=== PATIENT | male | born 1940 | race Caucasian/White ===

== ENCOUNTER → 2021-09-21 12:36 | Outpatient (CLI) | payer MEDICARE, SELFPAY ==
--- NOTE | 2021-09-21 12:38 | DI.MRI.S_ITS ---
PROCEDURE: MR CERVICAL SPINE WO CON INDICATIONS: Cervical disc disorder with myelopathy TECHNIQUE: Noncontrast sagittal T1 spin echo and T2 fast spin echo, sagittal STIR, foraminal oblique sagittal T2 fast spin echo, and axial gradient echo or T2 fast spin echo through the cervical spine. COMPARISON: None. FINDINGS: Image quality: Excellent. Alignment and Curvature: There is grade 1 anterolisthesis seen at the C4-C5 and C5-C6 levels. Minimal retrolisthesis is seen at C6-C7. At the T2-T3 level, mild anterolisthesis is seen. Bone Marrow: Marrow demonstrates normal overall signal. Spinal Cord: Visualized spinal cord has normal size and signal. No cerebellar tonsillar herniation. Paraspinous Soft Tissues: No paravertebral masses. Prevertebral soft tissues are normal in thickness. Prominent soft tissue pannus and irregularity can be seen adjacent to the dens, as on series 4 image 12, with partial erosion of the dens. C2-C3: The disc height is well-preserved. Loss of disc signal is seen at this level. A mild degree of generalized disc osteophyte complex is seen. There is moderate right-sided and minimal left-sided facet hypertrophy. No significant central canal narrowing is seen. C3-C4: The disc height is well-preserved. Loss of disc signal is seen at this level. A mild degree of generalized disc osteophyte complex is seen. Moderate to prominent facet hypertrophy is seen. There is moderate to severe bilateral neural foraminal narrowing seen, left worse than right. Mild central canal narrowing is seen. C4-C5: The disc height is well-preserved. Loss of disc signal is seen at this level. Moderate generalized disc osteophyte complex is seen. Moderate to prominent facet hypertrophy is seen. Moderate to severe bilateral neural foraminal narrowing is seen. At least moderate central canal narrowing is seen, with associated mass effect upon the spinal cord C5-C6: Kuto-zw-shuwhsxw loss of disc height and disc signal can be seen. At least moderate disc bulge is seen. There is at least moderate right-sided and [id number]-sd-ablhwzvg left-sided facet hypertrophy seen. There is moderate to severe bilateral neural foraminal narrowing seen, left worse than right. Moderate central canal narrowing is seen. There is associated mass effect upon the ventral spinal cord. C6-C7: At least moderate loss of disc height and disc signal can be seen. At least moderate disc osteophyte complex is seen, which is eccentric to left. Uncovertebral joint hypertrophy is seen at this level. Macrometastasis set there is moderate to severe bilateral neural narrowing seen. At least moderate central canal narrowing is seen, with associated ventral cord flattening. C7-T1: The disc height is well-preserved. Loss of disc signal is seen at this level. Moderate generalized disc osteophyte complex is seen. Mild facet joint hypertrophy is seen. Moderate to severe bilateral neural foraminal narrowing can be seen at this level, left worse than right. Moderate central canal narrowing is seen. IMPRESSION: Multiple levels of prominent cervical spine degenerative change can be seen. Multiple levels of moderate to severe bilateral neural foraminal narrowing can be seen. Several levels of mass effect can be seen upon the spinal cord. There is abnormal soft tissue pannus seen involving the dens, with partial erosion of the dens. Please correlate with a chronic inflammatory process, such as rheumatoid arthritis. Dictated by: Kobe Muhammad M.D. on 09/21/2021 at 13:30 Approved by: Kobe Muhammad M.D. on 09/21/2021 at 13:34
== END ==
PROVIDERS: PCP Family Medicine; Referring Provider Family Medicine; Visit Provider Family Medicine
DX: M47.12 Other spondylosis with myelopathy, cervical region (principal); M48.02 Spinal stenosis, cervical region; M50.00 Cervical disc disorder with myelopathy, unspecified cervical region
CPT/HCPCS: 72141

== ENCOUNTER → 2022-12-16 10:42 | Outpatient (CLI) | payer MEDICARE, SELFPAY ==
--- NOTE | 2022-12-16 10:45 | DI.MRI.S_ITS ---
PROCEDURE: MR THORACIC SPINE WO CON INDICATIONS: Collapsed vertebra TECHNIQUE: Noncontrast sagittal T1 spine echo and T2 fast spin echo, sagittal STIR, and T2 fast spin echo through the thoracic spine. COMPARISON: None. FINDINGS: Image quality: Excellent. Alignment and Curvature: Degenerative grade 1 anterior spondylolisthesis T2-3 Bone Marrow: Wedge-shaped compression fracture at T12 noted with marrow edema. No retropulsed fracture fragment. Spinal Cord: Visualized spinal cord is normal in size and signal. Paraspinous Soft Tissues: No paravertebral masses. Miscellaneous: Mild central stenosis noted at T2-3. Small paracentral right disc protrusion at T6-7 results in mild central stenosis IMPRESSION: Subacute T12 compression fracture without retropulsed fracture fragment or canal compromise. Degenerative grade 1 anterior spondylolisthesis at T2-3 Approved by: Jordan Mancera M.D. on 12/17/2022 at 9:52
== END ==
PROVIDERS: PCP Family Medicine; Referring Provider Family Medicine; Visit Provider Family Medicine
DX: M48.54XA Collapsed vertebra, not elsewhere classified, thoracic region, initial encounter for fracture (principal); M43.14 Spondylolisthesis, thoracic region
CPT/HCPCS: 72146

== ENCOUNTER 2023-02-19 11:07 | Day surgery (SDC) | payer MEDICARE, SELFPAY ==
--- NOTE | 2023-02-19 | PATH_ITS ---
[facility] Accession Number: [id number] No. of containers..03 Tissue . 01 Material submitted: . PART A: body - RANDOM BIOPSIES PART B: colon - RECTAL SIGMOID POLYP PART C: rectum - RECTAL POLYP . 01 Diagnosis: A. Random Colon, Biopsies: Colonic mucosa with no diagnostic abnormality. Negative for active, chronic, and microscopic colitis. Negative for dysplasia and malignancy. . B. Rectosigmoid Colon, Polyp: Hyperplastic polyp. . C. Rectum, Polyp: Tubular adenoma. MRV 02/27/2023 1655 Local . 01 Electronically signed: . Melissa Macdonald MD, Pathologist NPI- [id number] . 01 Gross description: . Part A: RANDOM BIOPSIES: Received in formalin are 4 fragment(s) of vargas, soft tissue measuring 0.1 x 0.1 x 0.1 cm to 0.3 x 0.2 x 0.1 cm submitted entirely in 1 cassette(s) Part B: RECTAL SIGMOID POLYP: Received in formalin is 1 fragment(s) of vargas, soft tissue measuring 0.2 x 0.2 x 0.2 cm submitted entirely in 1 cassette(s) Part C: RECTAL POLYP: Received in formalin is 1 fragment(s) of vargas, soft tissue measuring 0.4 x 0.4 x 0.3 cm submitted entirely in 1 cassette(s) /JOVITA 02/21/2023 0017 Local . 01 Pathologist provided ICD-10: D12.8 . 01 CPT . 435727, 921286, [id number] Specimen Comment: A courtesy copy of this report has been sent to [phone] Performed at: 01 [facility] [address] [place] [address] Suite [facility], [place], [place] [id number] MD Parish Maxwell MD Phone: [phone]
[2023-02-19] MEDS: LACTATED RINGERS 1,000 ML 42 ML IV (11:33)
[2023-02-19 11:38] VITALS: BMI 23.5
[2023-02-19 11:46] VITALS: BP 156/92; PULSE 91; RESP 16; TEMP 36.7; O2SAT 98
--- NOTE | 2023-02-19 12:26 | P.HP_ITS ---
History of Present Illness History of Present Illness Date Patient Seen: 02/19/23 Time Patient Seen: 12:26 Chief complaint: Dx Colonoscopy w/poss bx Narrative: I reviewed the recent clinic note. There has been a change in bowel habit. Colonoscopy has been requested to exclude microscopic colitis among other possibilities. [facility] Social History household members: spouse Smoking Status: Former smoker alcohol intake: current Meds Home Medications and Allergies Home Medications Medication Instructions Recorded Confirmed Type simvastatin 20 mg tablet 20 mg PO QPM #90 tabs 01/10/16 02/19/23 Rx celecoxib 200 mg capsule (Celebrex) 200 mg PO QDAY #90 tabs 04/03/16 02/19/23 Rx zolpidem 10 mg tablet 10 mg PO SEE INSTRUCTIONS #30 tabs 07/11/16 02/19/23 Rx amlodipine 10 mg-benazepril 20 mg 1 cap PO QDAY #90 caps 11/20/16 02/19/23 Rx capsule (Lotrel) hydrochlorothiazide 12.5 mg tablet 12.5 mg PO QDAY #90 tabs 11/20/16 02/19/23 Rx Allergies Allergy/AdvReac Type Severity Reaction Status Date / Time No Known Drug Allergies Allergy Verified 02/19/23 11:36 Review of Systems Review of Systems ROS: Yes All systems reviewed with the patient and are negative except as otherwise documented Exam Vital Signs (past 8 hours): - 02/19/23 11:46 Temperature 98.1 F Pulse Rate 91 H Respiratory Rate 16 Blood Pressure 156/92 H Pulse Oximetry 98 Oxygen Delivery Method Room Air Oxygen Delivery Method Room Air Const General: cooperative HENMT Head: normal to inspection Eyes General: appearance normal, both eyes and all related structures Neck Neck: normal visual inspection Chest Chest: normal inspection of the chest Resp Effort & Inspection: normal respiratory effort Cardio Rate: regular rate GI Inspection: normal to inspection Skin General: no rashes or lesions noted Neuro General: patient alert and patient awake Extrem General: normal to inspection and no pedal edema Psych Appearance: grossly normal Assessment & Plan Assessment & Plan narrative: This is an 82-year-old male with a change in bowel habit. Colonoscopy with possible random biopsies is pursued today
--- NOTE | 2023-02-19 13:44 | PM.OP.COLON ---
Operative Date/Time/Diagnoses Date of procedure: 02/19/23 Time of procedure: 13:44 Pre-op diagnosis: Change in bowel habit, diarrhea. Post-op diagnosis: same Procedure & Clinicians Study performed: Colonoscopy with cold forceps polypectomy, biopsies, hot snare polypectomy Same procedure as scheduled: Yes Indications: Change in bowel habit, diarrhea Surgeon: Bart Luis Procedure Notes SCOAP/Timeout: Done Procedure in detail: After the risks and benefits were explained, written and verbal informed consent was obtained. The patient was brought into the procedure room and placed into the left lateral decubitus position. Please see anesthesia notes for sedation details. Digital rectal examination was accomplished. The scope was introduced into the patient and advanced under direct visualization to the cecum as identified by the appendiceal orifice and ileocecal valve. The scope was slowly withdrawn to carefully examine the mucosa for any defects or lesions. Comprehensive imaging was accomplished throughout the rectum including the dentate line. The colon was decompressed, the scope was then removed from the patient who tolerated the procedure well. Adult colonoscope Bowel prep adequate Scope withdrawal time: 14 minutes Sedation minutes: 25 Complications: none Impression: There was no evidence of macroscopic colitis. Random colon biopsies were taken for exclusion of microscopic colitis. The terminal ileum appeared visually normal. The patient had scattered diverticulosis in both the right and left colon. There were some scattered venous blebs in the rectosigmoid region. No varices. There was a diminutive polyp around the rectosigmoid region that was probably hyperplastic but removed with cold forceps to exclude any adenomatous feature. There was a sessile 6 mm polyp in the rectum proper which was removed with hot snare. Patient had grade 2 internal hemorrhoids. Endoscopic diagnosis 1. Diverticulosis 2. Grade 2 hemorrhoids 3. Colon polyps 4. Rectosigmoid venous blebs Post-procedure Plan for aftercare: 1. Await histology 2. Titrate kgjt-ytk-nvtsmst fiber supplementation to the desired stool consistency and frequency. 3. Follow up GI clinic Disposition: PACU
[2023-02-19 13:49] VITALS: BP 119/67; PULSE 76; RESP 18; TEMP 37; O2SAT 97
[2023-02-19 13:54] VITALS: BP 108/56; PULSE 66; RESP 18; O2SAT 99
[2023-02-19 14:00] VITALS: BP 117/73; PULSE 64; RESP 18; TEMP 36.9; O2SAT 98
[2023-02-19 14:06] VITALS: BP 127/75; PULSE 65; RESP 20; TEMP 36.9; O2SAT 98
[2023-02-19 14:15] VITALS: BP 120/68; PULSE 67; RESP 16; O2SAT 98
== END 2023-02-19 14:16 | disposition home or self-care (01) ==
PROVIDERS: PCP Family Medicine; Referring Provider Internal Medicine Gastroenterology; Visit Provider Internal Medicine Gastroenterology
PROC: 0DJD8ZZ Inspection of Lower Intestinal Tract, Via Natural or Artificial Opening Endoscopic (ICD-10-PCS; CPT 45378; principal; 2023-02-19 12:30)
DX: R19.7 Diarrhea, unspecified (principal); K57.30 Diverticulosis of large intestine without perforation or abscess without bleeding; K64.1 Second degree hemorrhoids; K63.5 Polyp of colon; D12.8 Benign neoplasm of rectum
CPT/HCPCS: 45385; 45380; J2704

== ENCOUNTER → 2023-03-12 13:12 | Outpatient (CLI) | payer MEDICARE, SELFPAY ==
--- NOTE | 2023-03-12 13:13 | DI.ECHO.S_ITS ---
[facility]---------+ [facility] +---------+ : : [address] : : : : [id number] : : : : Phone: [phone]+ Echocardiogram Report + + :Name: ROMAN ROMERO Study Date: 03/12/2023 Height: 67 in : :[facility] ReadingLocation: Weight: 148 lb : : Gender: Male BSA: 1.8 m2 : :: 1940 Age: 83 yrs BP: 142/82 mmHg: :Reason For Study: Heart Murmur : :Ordering Physician: THOMAS, : :TORITO Obrien Performed By: Agustina Mann : :Referring: TORITO GUZMAN : + + Interpretation Summary There is mild concentric left ventricular hypertrophy. The ejection fraction is estimated to be 60-65%. Diastolic function could not be accurately assessed due to unobtainable data. The right ventricle is normal in size and function. There is mild aortic stenosis. There is trace aortic regurgitation. Pulmonary artery pressures cannot be estimated because of the lack of a measurable TR jet velocity but the IVC suggests a CVP of around 3 mmHg. Compared to the prior study dated 02/14/2017, there is a slight increase in the aortic valve gradient. Procedure: A two-dimensional transthoracic echocardiogram with color flow and Doppler was performed. The study quality was technically adequate. Comparison is made with the echocardiogram of 02/14/2017. The patient was in normal sinus rhythm during the exam. Left Ventricle: The left ventricle is normal in size. There is mild concentric left ventricular hypertrophy. The ejection fraction is estimated to be 60-65%. Diastolic function could not be accurately assessed due to unobtainable data. Right Ventricle: The right ventricle is normal in size and function. Atria: The left atrial size is normal. Right atrial size is normal. There is no Doppler evidence for an interatrial shunt. Mitral Valve: The mitral valve is normal. There is moderate mitral annular calcification. There is no mitral valve stenosis. There is trace mitral regurgitation. Aortic Valve: The aortic valve is trileaflet. The aortic valve is mildly calcified. There is mild to moderately reduced leaflet mobility. There is mild aortic stenosis. The peak aortic velocity is 2.9 m/sec. The peak aortic velocity on the previous exam was 2.8 m/sec. The aortic valve mean gradient is 17 mmHg. There is trace aortic regurgitation. Tricuspid Valve: The tricuspid valve is normal. There is no tricuspid stenosis. There is trace tricuspid regurgitation. Pulmonary artery pressures cannot be estimated because of the lack of a measurable TR jet velocity but the IVC suggests a CVP of around 3 mmHg. Pulmonic Valve: The pulmonic valve leaflets are thin and pliable; valve motion is normal. There is no pulmonic valvular stenosis. There is no pulmonic valvular regurgitation. Great Vessels: The aortic root is normal size. The ascending aorta is normal in size. The pulmonary artery is normal size. The IVC is of normal diameter and collapses greater than 50% with a sniff. This suggests a low right atrial pressure of 3 mm Hg. Pericardium/ Pleura There is no pericardial effusion. There is no pleural effusion. MMode/2D Measurements & Calculations LVIDd: 3.9 cm LVOT diam: 1.7 cm LVIDs: 2.7 cm Ao root diam: 3.3 cm FS: 30.8 % asc Aorta Diam: 3.4 cm IVSd: 1.4 cm LVPWd: 1.1 cm LV marcos. diameter/BSA (cm/m^2): 2.2 LV sys. diameter/BSA (cm/m^2): 1.5 LA A2 area: 19.5 cm2 RA long axis: 5.2 cm LA A4 area: 16.9 cm2 RA area: 12.1 cm2 LA length (vol): 5.8 cm RA vol: 24.0 ml LA vol: 48.1 ml RA : 13.5 ml/m2 LA vol index: 27.0 ml/m2 RVD1 (basal): 3.1 cm LVLs ap4: 5.8 cm LVLd ap2: 7.0 cm TAPSE_phl: 2.0 cm LVLs ap2: 6.0 cm Doppler Measurements & Calculations Ao V2 max: 271.4 cm/sec LVOT Max Jeffrey: 116.0 cm/sec Ao V2 mean: 180.8 cm/sec LV V1 max P.4 mmHg Ao max P.0 mmHg LV V1 VTI: 25.5 cm Ao mean P.6 mmHg SALINA(I,D): 1.0 cm2 Ao V2 VTI: 57.8 cm SALINA(V,D): 0.97 cm2 sev ratio: 0.44 SALINA indexed to BSA (cm^2/m^2): 0.56 MV E max jeffrey: 94.6 cm/sec PA V2 max: 109.0 cm/sec MV A max jeffrey: 146.0 cm/sec PA V2 mean: 75.4 cm/sec MV E/A: 0.65 PA mean P.0 mmHg Med Peak E' Jeffrey: 4.6 cm/sec PA pr(Accel): 45.7 mmHg E/E' med: 20.6 Lat Peak E' Jeffrey: 7.4 cm/sec E/E' lat: 12.7 E/e' average: 16.7 MV dec time: 0.30 sec SV(LVOT): 57.8 ml AV VR_phl: 0.43 SALINA(VTI)/BSA_phl: 0.56 Reading Physician:05:06 PM
== END ==
PROVIDERS: PCP Family Medicine; Referring Provider Family Medicine; Visit Provider Family Medicine
DX: I34.81 Nonrheumatic mitral (valve) annulus calcification (principal); I35.0 Nonrheumatic aortic (valve) stenosis; R01.1 Cardiac murmur, unspecified
CPT/HCPCS: 93306

== ENCOUNTER 2025-04-04 10:44 | Emergency (ER) | payer MEDICARE, SELFPAY ==
[2025-04-04 10:54] VITALS: BP 186/75; PULSE 73; RESP 18; TEMP 36.7; O2SAT 94; BMI 21.1
[2025-04-04] MEDS: PROPARACAINE 0.5% OPHTH SOL 1 DROPS EYE-RIGHT (12:01)
[2025-04-04] MEDS: FLUORESCEIN 1 MG STRIP EYE-RIGHT (12:03)
--- NOTE | 2025-04-04 12:06 | ED_ITS ---
HPI - Eye Problem General Chief complaint: Eye Problems Stated complaint: RT eye painful, red, itchy-stroke late [id number] Time Seen by Provider: 04/04/25 11:18 Source: patient Mode of arrival: Ambulatory History of Present Illness HPI Narrative: 85-year-old male here today for right eye sensitivity, itching, and burning for 2 days. States he had moved some logs a little bit prior to the onset but does not recall feeling like anything went into his eye. He initially did have a foreign body sensation which is now resolved. States that yesterday there was significant tearing of the right eye but that improved on the [facility] ride over to the ED today. He still has sensitivity and burning but it is less than it was. Denies eye pain. 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 He was on significant doses of prednisone for the 1st several months as there was concern of it being GCA, states he tapered off the prednisone about 5 or 6 weeks ago. Related Data Home Medications ?Medication ?Instructions ?Recorded ?Confirmed latanoprost 0.005 % eye drops drp EYE-BOTH 11/26/23 Previous Rx's ?Medication ?Instructions ?Recorded simvastatin 20 mg tablet 20 mg PO QPM #90 tabs celecoxib 200 mg capsule (Celebrex) 200 mg PO QDAY #90 tabs 04/03/16 zolpidem 10 mg tablet 10 mg PO SEE INSTRUCTIONS #3 0 tabs 07/11/16 amlodipine 10 mg-benazepril 20 mg 1 cap PO QDAY #90 ca ps 11/20/16 capsule (Lotrel) hydrochlorothiazide 12.5 mg tablet 12.5 mg PO QDAY #90 tabs 11/20/16 erythromycin 5 mg/gram (0.5 %) eye 0.5 inch EYE-RIGHT QID 5 days #3.5 04/04/25 ointment grams Allergies Allergy/AdvReac Type Severity Reaction Status Date / Time No Known Drug Allergies Allergy Verified 04/04/25 10:54 Review of Systems Review of Systems ROS Unobtainable: All systems reviewed & are unremarkable except as noted in HPI and below Patient History Medical History (Updated 04/04/25 @ 13:03 by Debbi Reid PA-C) Benign prostatic hyperplasia with lower urinary tract symptoms History of kidney stones History of tobacco use Rising PSA following treatment for malignant neoplasm of prostate Surgical History Hx of vasectomy Hx of prostate biopsy Hx of total knee replacement History of back surgery Family History Mother Cancer Hypertension Brother Diabetes mellitus Social History marital status: number of children: 1 household members: spouse Smoking Status: Former smoker alcohol intake: current caffeine: Yes Type(s) of exercise: walking frequency: 5-6 times per week duration: 60-90 minutes/day Smoking Status: Former smoker alcohol intake frequency: 0-2 drinks per day Exam Narrative Exam Narrative: GENERAL: [85] year old patient appears stated age. Well-developed patient, in no acute distress. HEAD: Atraumatic. Normocephalic. EYES: Pupils equal round and reactive. Extraocular motions intact. No scleral icterus. Right eye with some conjunctival injection but no drainage noted. No swelling. SLIT LAMP with fluorescein dye: Corneal abrasion noted inferior to the pupil. No foreign body noted. Otherwise normal exam. ENT: Nose without bleeding, purulent drainage. Throat without erythema, tonsillar hypertrophy or exudate. Airway patent. NECK: Trachea midline. Non tender CARDIOVASCULAR: Regular rate and rhythm without murmurs, gallops, or rubs. RESPIRATORY: Clear to auscultation. Breath sounds equal bilaterally. No wheezes, rales, or rhonchi. NEURO: AOx3. SKIN: No rash or erythema of visible areas Initial Vital Signs Initial Vital Signs: Vital Signs Temperature 98.0 F 04/04/25 10:54 Pulse Rate 73 04/04/25 10:54 Respiratory Rate 18 04/04/25 10:54 Blood Pressure 186/75 H 04/04/25 10:54 Pulse Oximetry 94 04/04/25 10:54 Oxygen Delivery Method Room Air 04/04/25 10:54 Course Orders Ordered: Discontinued Medications Fluorescein Sodium (Fluorescein 1 Mg Strip) 1 mg EYE-RIGHT NOW ONE Stop: 04/04/25 11:58 Last Admin: 04/04/25 12:03 Dose: 1 mg Documented By: BZ Proparacaine HCl (Proparacaine 0.5% Ophth Melissa) 1 drops EYE-RIGHT NOW ONE Stop: 04/04/25 11:56 Last Admin: 04/04/25 12:01 Dose: 1 drop Documented By: PEREZ Vital Signs Vital signs: Vital Signs - 8 hr 04/04/25 10:54 04/04/25 13:14 Temperature 98.0 F Pulse Rate 73 70 Respiratory Rate 18 18 Blood Pressure 186/75 H 164/76 H Pulse Oximetry 94 97 Oxygen Delivery Method Room Air Room Air MDM - Eye Problem MDM Narrative Medical decision making narrative: Multiple etiologies for patient's symptoms considered including, but not limited to: Corneal abrasion, glaucoma, conjunctivitis, keratitis, scleritis Patient is legally blind in the right eye secondary to CVA 4 months ago. He has sensitivity, burning sensation, and tearing but no pain. Had foreign body sensation initially but that has resolved. States the tearing has improved today as well. He does not recall any incidents where a foreign body may have entered his eye, but he was moving some logs prior to the onset. Tonometry readings are normal. Slit-lamp examination reveals a corneal abrasion inferior to the pupil, less than 1/4 of the total surface area. No conjunctival foreign body noted in the examination with slit lamp is otherwise unremarkable. Patient has symptoms already appear to be improving. We will try erythromycin ointment as he is not a contact lens wear and he will follow up with his blueprint reader in the next few days. Findings and discharge diagnosis discussed with patient/family followed by verbalization of understanding Return precautions discussed with patient/family whom verbalize understanding of diagnosis and plan Discharge Plan Departure Patient Disposition: Home Clinical Impression: Corneal abrasion, right Qualifiers: Encounter type: initial encounter Qualified Code(s): S05.01XA - Injury of conjunctiva and corneal abrasion without foreign body, right eye, initial encounter Instructions: Corneal Abrasion Activity Restrictions/Additional Instructions: Thank you for choosing us to care for you today. Your eye exam revealed a corneal abrasion on the right eye which is a scratch. These heal on their own but we have prescribed antibiotic ointment to protect the eye from infection in the meantime. Please use sunglasses when outdoors. Please follow up with your blueprint reader this week to ensure this has healed properly. If you experience any severe eye pain please return to the ED. Prescriptions: New erythromycin 5 mg/gram (0.5 %) ointment 0.5 inch EYE-RIGHT QID 5 Days Qty: 3.5 0RF No Action simvastatin 20 MG tablet 20 mg PO QPM Qty: 90 3RF celecoxib [Celebrex] 200 MG capsule 200 mg PO QDAY Qty: 90 3RF zolpidem 10 MG tablet 10 mg PO SEE INSTRUCTIONS Qty: 30 2RF amlodipine-benazepril [Lotrel] 10 MG/20 MG capsule 1 cap PO QDAY Qty: 90 3RF hydrochlorothiazide 12.5 MG tablet 12.5 mg PO QDAY Qty: 90 3RF latanoprost 0.005 % drops EYE-BOTH Referrals: Denys Miles MD [Primary Care Provider, Family Practice] Stand Alone Forms: Patient Portal/API
--- NOTE | 2025-04-04 12:37 | PC.NURSE ---
Patient declined to sit in bed, patient sitting in chair. Call light provided to patient.
[2025-04-04 13:14] VITALS: BP 164/76; PULSE 70; RESP 18; O2SAT 97
== END 2025-04-04 13:15 | disposition home or self-care (01) ==
PROVIDERS: Emergency Provider Physician Assistant; Family Provider Family Medicine; PCP Family Medicine
DX: S05.01XA Injury of conjunctiva and corneal abrasion without foreign body, right eye, initial encounter (principal); H54.8 Legal blindness, as defined in USA; X58.XXXA Exposure to other specified factors, initial encounter
CPT/HCPCS: 99282